=== PATIENT | male | born 1990 | race Caucasian/White ===

== ENCOUNTER 2023-07-17 09:45 | Emergency (ER) | payer OTHER ==
[~2023-07-17] VITALS: Ht 175.3 cm; Wt 81.6 kg
[2023-07-17 09:51] VITALS: BP_SYST 140; PULSE 98; RESP 17; TEMP 97.5; O2SAT 98
[2023-07-17] MEDS ORDERED: BACI1OIN7 TP (10:03)
[2023-07-17] MEDS: IBUPROFEN 600 MG TABLET PO ONE (10:15)
== END 2023-07-17 10:16 ==
LOC: SED 09:45
DX: S90.822A Blister (nonthermal), left foot, initial encounter (principal); S90.821A Blister (nonthermal), right foot, initial encounter; Z79.2 Long term (current) use of antibiotics; Y93.01 Activity, walking, marching and hiking; Y93.89 Activity, other specified; Y92.89 Other specified places as the place of occurrence of the external cause; Y99.8 Other external cause status
CPT/HCPCS: 99283